=== PATIENT | female | born 1955 | race Caucasian/White ===

== ENCOUNTER 2018-09-26 17:00 | Inpatient (IN) | payer SELFPAY ==
[2018-09-26 18:23] LABS: URINE BILIRUBIN NEGATIVE (NEGATIVE); URINE BLOOD LARGE (NEGATIVE); URINE COLOR YELLOW (YELLOW); URINE GLUCOSE (UA) NEGATIVE (NEGATIVE); URINE LEUKOCYTE ESTERASE LARGE Leu/uL (NEGATIVE); URINE PROTEIN 100 mg/dL (<30 mg/dL); URINE UROBILINOGEN 0.2 E.U./dL (<1 E.U./dL)
--- NOTE | 2018-09-26 18:28 | ED PDOC ---
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 She states no symptoms this AM, and that symptoms were sudden onset [place] a mall this [place]. Pain intermittent and now localized to suprapubic area. Denies any history of fever. Denies nausea or vomiting. Denies diarrhea or difficulty moving bowels. Daughter is present and translates with patient's permission. Past Medical History - Infectious Disease Hx of Infectious Diseases: None - Reproductive Menopause: Yes - Cardiac Hx Cardiac Disorders: Yes Hx Hypertension: Yes - Pulmonary Hx Respiratory Disorders: No - Neurological Hx Neurological Disorder: No - Endocrine/Metabolic Hx Diabetes Mellitus Type 2: Yes - Psychiatric Hx Psychophysiologic Disorder: No Hx Substance Use: No - Anesthesia Hx Anesthesia Reactions: No Family/Social History Family/Social History: Unknown Family HX Smoking Status: Unknown If Ever Smoked Hx Alcohol Use: No Hx Substance Use: No Allergies/Home Meds Allergies/Adverse Reactions: Allergies No Known Allergies Allergy (Verified 09/26/18 17:30) Review of Systems - Review of Systems Constitutional: absent: Fevers Respiratory: absent: SOB Cardiovascular: absent: Chest Pain Gastrointestinal: Abdominal Pain. absent: Constipation, Diarrhea, Nausea, Vomiting, Appetite Changes, Hematochezia, Hematemesis Genitourinary Female: Dysuria, Frequency, Hematuria, Urine Output Changes. absent: Vaginal Bleeding, Vaginal Discharge Musculoskeletal: Back Pain. absent: Neck Pain Skin: absent: Rash Neurological: absent: Headache, Dizziness, Focal Weakness Endocrine: absent: Polyuria Hemo/Lymphatic: absent: Easy Bleeding Physical Exam Vital Signs Reviewed: Yes Temperature: Afebrile Appearance: Positive for: Well-Appearing, Non-Toxic, Comfortable Pain Distress: Mild Mental Status: Positive for: Alert and Oriented X 3 - Systems Exam Head: Present: Atraumatic Pupils: Present: PERRL Extroacular Muscles: Present: EOMI Conjunctiva: No: Icteric Mouth: Present: Moist Mucous Membranes Pharnyx: No: ERYTHEMA Neck: Present: Normal Range of Motion. No: Meningeal Signs Respiratory/Chest: Present: Clear to Auscultation. No: Respiratory Distress Cardiovascular: Present: Regular Rate and Rhythm Abdomen: Present: Tenderness (mild supraprubic pain, no pusatile masses, no incarcerated hernia noted), Scars. No: Peritoneal Signs Rectal: No: Gross Blood Back: Present: CVA Tenderness. No: Midline Tenderness Upper Extremity: Present: Normal ROM. No: Edema Lower Extremity: Present: NORMAL PULSES, Neurovascularly Intact. No: Edema, CALF TENDERNESS Neurological: Present: Motor Func Grossly Intact, Normal Sensory Function Skin: Present: Warm Psychiatric: Present: Alert, Normal Insight, Normal Concentration Medical Decision Making ED Course and Treatment: 09/26/18 18:29 Patient present with family who supplements history. Patient reports sudden onset of flank and abdominal pain associated with urinary frequency. On exam, she is comfortable, no fever, no vomiting. No chest pain or sob. Hx of kidney stones reported. Mild left lower quadrant abdominal pain palpated on re-exam. No rebound or guarding. No incarcerated hernias. CT ordered to evaluate for renal colic. UA reviewed. 09/26/18 20:[address] Salvador for follow-up of ct, re-evaluation, and dispo. 09/29/18 15:23 - Lab Interpretations Lab Results: Urine Color Yellow (YELLOW) 09/26/18 18:00 Urine Appearance Sl cloudy (CLEAR) 09/26/18 18:00 Urine pH 6.0 (4.7-8.0) 09/26/18 18:00 Ur Specific [place] 1.025 (1.005-1.035) 09/26/18 18:00 Urine Protein 100 mg/dL (<30 mg/dL) H 09/26/18 18:00 Urine Glucose (UA) Negative mg/dL (NEGATIVE) 09/26/18 18:00 Urine Ketones Negative mg/dL (NEGATIVE) 09/26/18 18:00 Urine Blood Large (NEGATIVE) H 09/26/18 18:00 Urine Nitrate Negative (NEGATIVE) 09/26/18 18:00 Urine Bilirubin Negative (NEGATIVE) 09/26/18 18:00 Urine Urobilinogen 0.2 E.U./dL (<1 E.U./dL) 09/26/18 18:00 Ur Leukocyte Esterase Large [place]/uL (NEGATIVE) H 09/26/18 18:00 - RAD Interpretation Radiology Orders: 09/26/18 18:02 ABD & PELVIS W/O PO OR IV CONT [CT] Stat CHEST TWO VIEWS (PA/LAT) [RAD] Stat Disposition/Present on Arrival - Present on Arrival Any Indicators Present on Arrival: No History of DVT/PE: No History of Uncontrolled Diabetes: No Urinary Catheter: No History of Decub. Ulcer: No History Surgical Site Infection Following: None - Disposition Have Diagnosis and Disposition been Completed?: Yes Diagnosis: Pyelonephritis Disposition: HOSPITALIZED Disposition Time: 21:00 Patient Plan: Admission Patient Problems: Current Active Problems Problem Status Onset Pyelonephritis Acute Condition: STABLE
[2018-09-26 18:32] LABS: URINE APPEARANCE CLOUDY (CLEAR); URINE BACTERIA MANY /hpf; URINE RBC TNTC /hpf (0-2); URINE WBC TNTC /hpf (0-6)
[2018-09-26 19:23] LABS: BASO # 0.02 K/mm3 (0.0-2.0); BASO % 0.1 % (0.0-3.0); EOS # 0.1 (0.0-0.7); EOS % 0.8 % (1.5-5.0); LYMPH # 4.1 (1.2-3.4); LYMPH % 30.7 % (22.0-35.0); MEAN CELL VOLUME 84.5 fl (80.0-105.0); MEAN CORPUSCULAR HEMOGLOBIN 28.2 pg (25.0-35.0); MEAN CORPUSCULAR HGB CONC 33.3 g/dl (31.0-37.0); MEAN PLATELET VOLUME 9.1 fl (7.0-11.0); MONO # 0.8 (0.1-0.6); MONO % 6.2 % (1.0-6.0); RBC 4.26 10^6/uL (3.5-6.1); RED CELL DISTRIBUTION WIDTH 14.6 % (11.5-14.5); WHITE BLOOD COUNT 13.4 10^3/uL (4.5-11.0)
[2018-09-26 19:40] LABS: ALB/GLOB RATIO 1.1 (1.1-1.8); CALCIUM 9.3 mg/dL (8.4-10.5)
[2018-09-26] MEDS ORDERED: cefTRIAXone 1 gm 1 GM/100 ML BAG IV STA (20:50)
--- NOTE | 2018-09-26 21:12 | ED PDOC ---
Physical Exam Vital Signs Temp Pulse Resp BP Pulse Ox 09/26/18 19:38 93 H 17 120/69 96 09/26/18 17:24 98.2 F 93 H 18 128/71 98 Medical Decision Making ED Course and Treatment: 09/26/18 21:11 Case endorsed to me by Dr. Griffin Covington pending CT Abd & Pelvis, Urinalysis, and reassessment/disposition. CT of the abdomen and pelvis without contrast Electronically signed on September 26, 2018 9:13:32 PM EDT by: Roman Carlson M.D. Impression: 1. Nonobstructing right renal nephrolithiasis. No evidence of hydronephrosis. 2. No obstructive or inflammatory bowel changes. 3. Leiomyomatous uterus. 4. Left inguinal hernia containing only omental fat. 09/26/18 21:29 Patient on reevaluation with continued left flank pain /noted leukocytosis/and positive urine.Iv antibiotics administered. Case discussed with medical records coder and Dr. Adams who is aware and agrees with the plan. Accepts patient into hospitalist service. - Lab Interpretations Lab Results: Total Bilirubin 0.4 mg/dL (0.2-1.3) 09/26/18 18:30 AST 49 U/L (14-36) H 09/26/18 18:30 ALT 37 U/L (7-56) 09/26/18 18:30 Alkaline Phosphatase 91 U/L (38-126) 09/26/18 18:30 Total Protein 7.8 g/dL (5.8-8.3) 09/26/18 18:30 Albumin 4.0 g/dL (3.0-4.8) 09/26/18 18:30 Globulin 3.8 gm/dL 09/26/18 18:30 Albumin/Globulin Ratio 1.1 (1.1-1.8) 09/26/18 18:30 Urine Color Yellow (YELLOW) 09/26/18 18:00 Urine Appearance Cloudy (CLEAR) 09/26/18 18:00 Urine pH 6.0 (4.7-8.0) 09/26/18 18:00 Ur Specific [place] 1.025 (1.005-1.035) 09/26/18 18:00 Urine Protein 100 mg/dL (<30 mg/dL) H 09/26/18 18:00 Urine Glucose (UA) Negative mg/dL (NEGATIVE) 09/26/18 18:00 Urine Ketones Negative mg/dL (NEGATIVE) 09/26/18 18:00 Urine Blood Large (NEGATIVE) H 09/26/18 18:00 Urine Nitrate Negative (NEGATIVE) 09/26/18 18:00 Urine Bilirubin Negative (NEGATIVE) 09/26/18 18:00 Urine Urobilinogen 0.2 E.U./dL (<1 E.U./dL) 09/26/18 18:00 Ur Leukocyte Esterase Large [place]/uL (NEGATIVE) H 09/26/18 18:00 Urine RBC Tntc /hpf (0-2) H 09/26/18 18:00 Urine WBC Tntc /hpf (0-6) H 09/26/18 18:00 Ur Epithelial Cells 6 - 8 /hpf (0-5) H 09/26/18 18:00 Urine Bacteria Many /hpf (NONE) 09/26/18 18:00 I have reviewed the lab results: Yes - RAD Interpretation Radiology Orders: 09/26/18 18:02 ABD & PELVIS W/O PO OR IV CONT [CT] Stat CHEST TWO VIEWS (PA/LAT) [RAD] Stat - Medication Orders Current Medication Orders: Ceftriaxone Sodium (Rocephin 1 Gram Ivpb) 1 gm in 100 mls @ 200 mls/hr IV ONCE STA; Protocol Stop: 09/26/18 21:19 Last Admin: 09/26/18 20:56 Dose: 200 mls/hr eMAR Start Stop Document 09/26/18 20:56 CD (Rec: 09/26/18 20:56 CD [facility] [id number] Intravenous Solution Start Date 09/26/18 Start Time 20:56 End Date 09/26/18 End time 21:26 Total Infusion Time 30 - Scribe Statement The provider has reviewed the documentation as recorded by the Dima Encinas Provider Scribe Attestation: All medical record entries made by the Scribe were at my direction and personally dictated by me. I have reviewed the chart and agree that the record accurately reflects my personal performance of the history, physical exam, medical decision making, and the department course for this patient. I have also personally directed, reviewed, and agree with the discharge instructions and disposition. Disposition/Present on Arrival - Present on Arrival Any Indicators Present on Arrival: No History of DVT/PE: No History of Uncontrolled Diabetes: No Urinary Catheter: No History of Decub. Ulcer: No History Surgical Site Infection Following: None - Disposition Have Diagnosis and Disposition been Completed?: Yes Diagnosis: Pyelonephritis Disposition: HOSPITALIZED Disposition Time: 21:30 Patient Problems: Current Active Problems Problem Status Onset Pyelonephritis Acute Condition: STABLE
--- NOTE | 2018-09-26 22:29 | CP.PCM.HP ---
<Iraj Morrissey - Last Filed: 09/26/18 22:59> History of Present Illness - History of Present Illness History of Present Illness: CC: L Flank pain, dysuriea, and blood in urine 63 year old Sami speaking female with PMHx of DM, HTN, and nephrothiasis presents to the hospital with c/o with L flank pain and burning with urination. Pt states that her symptoms started this morning and has gotten progressively worse. She states that the flank pain is 8/10 in severity and non radiating. She complains of dyurea as well as seeing blood in her urine. She denies any fever or chills. She does also complain of a cough for the past 3 weeks. She states that she just returned from [place] a few days ago and she was started on antibiotics for it, name of which she does not recall. No other Complaints. 12 Point ROS performed and neg other than stated above. PMH: as above Pshx: R breast lipoma, and "kidney stone surgery" Med: refer to MAR ALL: NKA SH: Denies any smoking, drinking, or drug FH: mother with DM and HTN Translation code: [id number] Present on Admission - Present on Admission Any Indicators Present on Admission: No Review of Systems - Review of Systems All systems: reviewed and no additional remarkable complaints except Past Patient History - Infectious Disease Hx of Infectious Diseases: None - Past Social History Smoking Status: Unknown If Ever Smoked - CARDIAC Hx Cardiac Disorders: Yes Hx Hypertension: Yes - PULMONARY Hx Respiratory Disorders: No - NEUROLOGICAL Hx Neurological Disorder: No - ENDOCRINE/METABOLIC Hx Diabetes Mellitus Type 2: Yes - PSYCHIATRIC Hx Psychophysiologic Disorder: No Hx Substance Use: No - ANESTHESIA Hx Anesthesia Reactions: No Meds Allergies/Adverse Reactions: Allergies Allergy/AdvReac Type Severity Reaction Status Date / Time No Known Allergies Allergy Verified 09/26/18 17:30 Physical Exam - Constitutional Appears: No Acute Distress - Head Exam Head Exam: ATRAUMATIC, NORMOCEPHALIC - Eye Exam Eye Exam: EOMI - ENT Exam ENT Exam: Mucous Membranes Moist - Respiratory Exam Respiratory Exam: Clear to Auscultation Bilateral. absent: Rales, Rhonchi, Wheezes - Cardiovascular Exam Cardiovascular Exam: Tachycardia, REGULAR RHYTHM, +S1, +S2 - GI/Abdominal Exam GI & Abdominal Exam: Normal Bowel Sounds, Soft, Tenderness (lower abd). absent: Distended - Extremities Exam Extremities exam: Negative for: calf tenderness, pedal edema - Back Exam Back exam: CVA tenderness (L) - Neurological Exam Neurological exam: Alert, CN II-XII Intact, Normal Gait, Oriented x3 - Psychiatric Exam Psychiatric exam: Normal Mood - Skin Skin Exam: Dry, Warm Results - Vital Signs Recent Vital Signs: Last Vital Signs Temp 98.2 F 09/26/18 21:36 Pulse 87 09/26/18 21:36 Resp 18 09/26/18 21:36 BP 128/64 09/26/18 21:36 Pulse Ox 95 09/26/18 21:36 - Labs Result Diagrams: 09/26/18 18:30 09/26/18 18:30 Labs: Laboratory Results - last 24 hr 09/26/18 09/26/18 09/26/18 18:00 18:30 18:30 WBC 13.4 H RBC 4.26 Hgb 12.0 Hct 36.0 MCV 84.5 MCH 28.2 MCHC 33.3 RDW 14.6 H Plt Count 354 MPV 9.1 Neut % (Auto) 62.2 Lymph % (Auto) 30.7 Webb % (Auto) 6.2 H Eos % (Auto) 0.8 L Baso % (Auto) 0.1 Lymph # (Auto) 4.1 H Webb # (Auto) 0.8 H Eos # (Auto) 0.1 Baso # (Auto) 0.02 Absolute Neuts (auto) 8.30 H Sodium 139 Potassium 4.2 Chloride 105 Carbon Dioxide 22 Anion Gap 16 BUN 53 H Creatinine 1.5 H Est GFR ( Amer) 42 Est GFR (Non-Af Amer) 35 Random Glucose 114 H Calcium 9.3 Total Bilirubin 0.4 AST 49 H ALT 37 Alkaline Phosphatase 91 Total Protein 7.8 Albumin 4.0 Globulin 3.8 Albumin/Globulin Ratio 1.1 Urine Color Yellow Urine Appearance Cloudy Urine pH 6.0 Ur Specific [place] 1.025 Urine Protein 100 H Urine Glucose (UA) Negative Urine Ketones Negative Urine Blood Large H Urine Nitrate Negative Urine Bilirubin Negative Urine Urobilinogen 0.2 Ur Leukocyte Esterase Large H Urine RBC Tntc H Urine WBC Tntc H Ur Epithelial Cells 6 - 8 H Urine Bacteria Many Assessment & Plan - Assessment and Plan (Free Text) Assessment: Sepsis with urinary tract infection with high suspicion of pyelo Bronchitis r/o pneumonia REINA DM non insulin dependent HTN Hx of nephrolithiasis Rocephin has been started in the ED. Urinalysis was positive. We will continue Rocephin for UTI (with probably clinical cystitis and pyelonephritis). CT of abd without contrast showed no pyelo. Cont Tylenol for pain control. Started Doxy for her bronchitis. F/u official CXR read. Cont NS@100 for her REINA. Cont to monitor Cr and avoid nephrotoxic drugs. DM we will start insulin sliding scale. F/u home medications. HTN currently normotensive, f/u home medications. Cont Protonix and SCD for GI/DVT ppx. Case and plan was reviewed and discussed with Dr Adams. <Philip Adams - Last Filed: 09/27/18 05:13> Results - Vital Signs Recent Vital Signs: Last Vital Signs Temp 98.2 F 09/26/18 21:36 Pulse 87 09/26/18 21:36 Resp 18 09/27/18 00:02 BP 128/64 09/26/18 21:36 Pulse Ox 95 09/26/18 21:36 - Labs Result Diagrams: 09/26/18 18:30 09/26/18 18:30 Labs: Laboratory Results - last 24 hr 09/26/18 09/26/18 09/26/18 18:00 18:30 18:30 WBC 13.4 H RBC 4.26 Hgb 12.0 Hct 36.0 MCV 84.5 MCH 28.2 MCHC 33.3 RDW 14.6 H Plt Count 354 MPV 9.1 Neut % (Auto) 62.2 Lymph % (Auto) 30.7 Webb % (Auto) 6.2 H Eos % (Auto) 0.8 L Baso % (Auto) 0.1 Lymph # (Auto) 4.1 H Webb # (Auto) 0.8 H Eos # (Auto) 0.1 Baso # (Auto) 0.02 Absolute Neuts (auto) 8.30 H Sodium 139 Potassium 4.2 Chloride 105 Carbon Dioxide 22 Anion Gap 16 BUN 53 H Creatinine 1.5 H Est GFR ( Amer) 42 Est GFR (Non-Af Amer) 35 Random Glucose 114 H Calcium 9.3 Total Bilirubin 0.4 AST 49 H ALT 37 Alkaline Phosphatase 91 Total Protein 7.8 Albumin 4.0 Globulin 3.8 Albumin/Globulin Ratio 1.1 Urine Color Yellow Urine Appearance Cloudy Urine pH 6.0 Ur Specific [place] 1.025 Urine Protein 100 H Urine Glucose (UA) Negative Urine Ketones Negative Urine Blood Large H Urine Nitrate Negative Urine Bilirubin Negative Urine Urobilinogen 0.2 Ur Leukocyte Esterase Large H Urine RBC Tntc H Urine WBC Tntc H Ur Epithelial Cells 6 - 8 H Urine Bacteria Many Attending/Attestation - Attestation I have personally seen and examined this patient.: Yes I have fully participated in the care of the patient.: Yes I have reviewed all pertinent clinical information: Yes
[2018-09-27] MEDS: Sodium Chloride 0.9% 1,000 ML IV SCH ×3 (01:21→18:45)
[2018-09-27] MEDS: Pantoprazole 40 mg EC Tab PO SCH (05:42)
[2018-09-27 08:05] LABS: BASO # 0.01 K/mm3 (0.0-2.0); BASO % 0.1 % (0.0-3.0); EOS # 0.2 (0.0-0.7); EOS % 1.9 % (1.5-5.0); HEMOGLOBIN 11.2 g/dL (12.0-16.0); LYMPH # 3.6 (1.2-3.4); LYMPH % 36.1 % (22.0-35.0); MEAN CELL VOLUME 84.9 fl (80.0-105.0); MEAN CORPUSCULAR HEMOGLOBIN 27.3 pg (25.0-35.0); MEAN CORPUSCULAR HGB CONC 32.1 g/dl (31.0-37.0); MEAN PLATELET VOLUME 8.9 fl (7.0-11.0); MONO # 0.7 (0.1-0.6); MONO % 6.6 % (1.0-6.0); RBC 4.11 10^6/uL (3.5-6.1); RED CELL DISTRIBUTION WIDTH 14.7 % (11.5-14.5); WHITE BLOOD COUNT 10.1 10^3/uL (4.5-11.0)
[2018-09-27] MEDS: Insulin Reg-LOW-Coverage SC SCH ×4 (08:10→22:04)
[2018-09-27 08:17] LABS: ALBUMIN 3.6 g/dL (3.0-4.8); CALCIUM 8.6 mg/dL (8.4-10.5)
--- NOTE | 2018-09-27 09:13 | CT ---
Date of service: 09/26/2018 PROCEDURE: CT Abdomen and Pelvis without intravenous contrast HISTORY: left flank/abdominal pain COMPARISON: None. TECHNIQUE: Contiguous images were obtained from the domes of the diaphragms to the upper thighs without the administration of intravenous contrast. Oral contrast was not administered. Radiation dose: Total exam DLP = 949.75 mGy-cm. This CT exam was performed using one or more of the following dose reduction techniques: Automated exposure control, adjustment of the mA and/or kV according to patient size, and/or use of iterative reconstruction technique. FINDINGS: LOWER THORAX: Bibasilar atelectasis/scarring. Heart size normal. Coronary arterial and valvular calcifications. LIVER: Diffuse hepatic steatosis. No gross lesion or ductal dilatation. GALLBLADDER AND BILE DUCTS: Unremarkable. PANCREAS: Unremarkable. No gross lesion or ductal dilatation. SPLEEN: Small splenule inferior to the main spleen. ADRENALS: Unremarkable. No mass. KIDNEYS AND URETERS: Right lower pole 8 x 11 nonobstructive calculus. Focal right upper pole caliectasis. No hydronephrosis. No solid mass. VASCULATURE: Unremarkable. No aortic aneurysm. No aortic atherosclerotic calcification or mural plaque present. BOWEL: Unremarkable. No obstruction. No gross mural thickening. APPENDIX: No findings to suggest acute appendicitis. PERITONEUM: Moderate left fat containing inguinal hernia. No free fluid. No free air. LYMPH NODES: Unremarkable. No enlarged lymph nodes. BLADDER: Unremarkable. REPRODUCTIVE: Multi fibroid uterus, some of which demonstrate calcifications. BONES: No acute fracture. OTHER FINDINGS: None. IMPRESSION: No obstructive uropathy or evidence of recently passed genitourinary calculus. Nonobstructive right lower pole calculus. No acute abdominal pelvic pathology
--- NOTE | 2018-09-27 09:14 | RAD ---
Date of service: 09/26/2018 HISTORY: cough for one week COMPARISON: No prior. TECHNIQUE: Chest PA and lateral views FINDINGS: LUNGS: No active pulmonary disease. PLEURA: No significant pleural effusion identified. No pneumothorax apparent. CARDIOVASCULAR: No aortic atherosclerotic calcification present. Normal cardiac size. No pulmonary vascular congestion. OSSEOUS STRUCTURES: No significant abnormalities. VISUALIZED UPPER ABDOMEN: Normal. OTHER FINDINGS: None. IMPRESSION: No active disease.
[2018-09-27] MEDS ORDERED: Alum-Mag Hydrox-Simethicone Susp (30 mL) PO PRN (09:55)
[2018-09-27] MEDS: cefTRIAXone 1 gm 1 GM/100 ML BAG IVPB SCH (10:32)
[2018-09-27 10:42] LABS: HDL CHOLESTEROL 28 mg/dL (29-60)
[2018-09-27 10:52] LABS: LDL CHOLESTEROL 95 mg/dL (0-129)
[2018-09-27 10:54] LABS: TROPONIN I < 0.01 ng/mL
--- NOTE | 2018-09-27 13:15 | CP.PCM.PN ---
<Nohelia Calvin - Last Filed: 09/27/18 13:12> Subjective - Date & Time of Evaluation Date of Evaluation: 09/27/18 Time of Evaluation: 13:12 - Subjective Subjective: Nohelia Calvin, PGY-1, Internal Medicine Progress Note for Dr. Mejía Patient seen and evaluated at bedside. Patient had no acute overnight events. Patient reported discontinuation of hematuria but reported dysuria. Patient has improvement of abdominal and flank pain of the left side. Patient had chills and nausea at home but denies these symptoms at this time. Patient denies constipation, diarrhea. In addition, patient has had cough for 1 month with light yellow sputum. 12-point ROS was unremarkable except for what was mentioned above. Patient takes amaryl 3 mg daily Objective - Vital Signs/Intake and Output Vital Signs (last 24 hours): Temp Pulse Resp BP Pulse Ox 98.1 F 87 18 133/73 98 09/27/18 06:00 09/27/18 06:00 09/27/18 06:00 09/27/18 06:00 09/27/18 06:00 Intake and Output: 09/27/18 09/27/18 06:59 18:59 Intake Total 240 Balance 240 - Medications Medications: Current Medications Acetaminophen (Tylenol 325mg Tab) 650 mg PO Q6H PRN PRN Reason: Pain, moderate (4-7) Al Hydrox/Mg Hydrox/Simethicone (Maalox Plus 30 Ml) 30 ml PO DAILY PRN PRN Reason: Indigestion / Heartburn Aspirin (Aspirin Chewable) 81 mg PO DAILY [facility] Last Admin: 09/27/18 10:37 Dose: 81 mg Doxycycline Hyclate (Doryx) 100 mg PO Q12 [facility]; Protocol Last Admin: 09/27/18 10:33 Dose: 100 mg Sodium Chloride (Sodium Chloride 0.9%) 1,000 mls @ 100 mls/hr IV .Q10H [facility] Last Admin: 09/27/18 08:45 Dose: 100 mls/hr Ceftriaxone Sodium (Rocephin 1 Gram Ivpb) 1 gm in 100 mls @ 100 mls/hr IVPB DAILY [facility]; Protocol Last Admin: 09/27/18 10:32 Dose: 100 mls/hr Insulin Human Regular (Humulin R Low) 0 units SC ACHS [facility]; Protocol Last Admin: 09/27/18 11:56 Dose: Not Given Pantoprazole Sodium (Protonix Ec Tab) 40 mg PO 0600 [facility] Last Admin: 09/27/18 05:42 Dose: 40 mg - Labs Labs: 09/27/18 07:00 09/27/18 07:00 - Constitutional Appears: Well, Non-toxic, No Acute Distress - Head Exam Head Exam: ATRAUMATIC, NORMAL INSPECTION, NORMOCEPHALIC - Eye Exam Eye Exam: EOMI, PERRL - ENT Exam ENT Exam: Mucous Membranes Moist - Neck Exam Neck Exam: Full ROM, Normal Inspection - Respiratory Exam Respiratory Exam: Rales, NORMAL BREATHING PATTERN - Cardiovascular Exam Cardiovascular Exam: REGULAR RHYTHM, RRR, +S1, +S2. absent: Clicks, Gallop, Rubs - GI/Abdominal Exam GI & Abdominal Exam: Soft, Tenderness (llq), Normal Bowel Sounds. absent: Distended, Firm, Guarding - Extremities Exam Extremities Exam: Full ROM, Normal Capillary Refill, Normal Inspection - Back Exam Back Exam: CVA tenderness (L) - Neurological Exam Neurological Exam: Alert, Awake, CN II-XII Intact, Normal Gait, Oriented x3 - Psychiatric Exam Psychiatric exam: Normal Affect, Normal Mood - Skin Skin Exam: Dry, Intact, Normal Color Assessment and Plan - Assessment and Plan (Free Text) Assessment: 63 year old female with past medical history of diabetes mellitus, hypertension, nephrolithiasis presented with left flank pain with burning on urination and hematuria. Abdominal CT shows no obstructive uropathy or evidence of recently passed genitourinary calculus. Nonobstructive right lower pole calculus. Plan: UTI vs. pyelonephritis -Abdominal CT 09/27 shows no obstructive uropathy or evidence of recently passed genitourinary calculus. Nonobstructive right lower pole calculus. -No CT findings of pyelonephritis but symptomatically is consistent -UA: large blood, large LE, negative nitrate, Tntc WBC, 6-8 epithelial cells, many bacteria -UCx: gram negative raza -Continue with NS at 100cc/hr -Continue ceftriaxone 1 gm daily started on 09/26 -Continue with tylenol PRN for pain GERD -CXR: no active disease -Continue with protonix -Started maalox PRN -Started robitussin 100 mg Q4PRN -Cough likely 2/2 to severe GERD. Bronchitis -Rhonchi on exam on 09/27 -CXR: no acute disease -Will continue doxycycline started on 09/26 Atypical Chest Pain with ACS rule out -EKG: NSR -Tropx1: negative -Will follow up tropx2 -Start aspirin 81 mg daily Hyperlipidemia -T. Rest of lipid panel unremarkable -Start lipitor 20 mg daily REINA -Creatinine 1.5. Unchanged from 09/26 -Continue with NS at 100cc/hr Diabetes mellitus type II -HgbA1c: 7.3 -Continue with low sliding scale insulin -Continue with consistent carbohydrate diet -Accuchecks ACHS History of Hypertension -Normotensive -Hold off on antihypertensives at this time GI prophylaxis: protonix DVT prophylaxis: SCD Patient plan discussed with Dr. Mejía. <Kaylyn Mejía - Last Filed: 09/27/18 14:25> Objective - Vital Signs/Intake and Output Vital Signs (last 24 hours): Temp Pulse Resp BP Pulse Ox 98.1 F 87 18 133/73 98 09/27/18 06:00 09/27/18 06:00 09/27/18 06:00 09/27/18 06:00 09/27/18 06:00 Intake and Output: 09/27/18 09/27/18 06:59 18:59 Intake Total 240 Balance 240 - Medications Medications: Current Medications Acetaminophen (Tylenol 325mg Tab) 650 mg PO Q6H PRN PRN Reason: Pain, moderate (4-7) Al Hydrox/Mg Hydrox/Simethicone (Maalox Plus 30 Ml) 30 ml PO DAILY PRN PRN Reason: Indigestion / Heartburn Albuterol/Ipratropium (Duoneb 3 Mg/0.5 Mg (3 Ml) Ud) 3 ml IH Q2H PRN PRN Reason: Shortness of Breath Aspirin (Aspirin Chewable) 81 mg PO DAILY [facility] Last Admin: 09/27/18 10:37 Dose: 81 mg Atorvastatin Calcium (Lipitor) 20 mg PO DIN [facility] Doxycycline Hyclate (Doryx) 100 mg PO Q12 [facility]; Protocol Guaifenesin (Robitussin) 100 mg PO Q4H PRN PRN Reason: Cough Sodium Chloride (Sodium Chloride 0.9%) 1,000 mls @ 100 mls/hr IV .Q10H [facility] Last Admin: 09/27/18 08:45 Dose: 100 mls/hr Ceftriaxone Sodium (Rocephin 1 Gram Ivpb) 1 gm in 100 mls @ 100 mls/hr IVPB DAILY [facility]; Protocol Last Admin: 09/27/18 10:32 Dose: 100 mls/hr Insulin Human Regular (Humulin R Low) 0 units SC ACHS [facility]; Protocol Last Admin: 09/27/18 11:56 Dose: Not Given Pantoprazole Sodium (Protonix Ec Tab) 40 mg PO 0600 [facility] Last Admin: 09/27/18 05:42 Dose: 40 mg - Labs Labs: 09/27/18 07:00 09/27/18 07:00 Attending/Attestation - Attestation I have personally seen and examined this patient.: Yes I have fully participated in the care of the patient.: Yes I have reviewed all pertinent clinical information, including history, physical exam and plan: Yes Notes (Text): 09/27/18 14:19 63 year old with past medical history of diabetes, hypertension and nephrolithiasis who presented with complaint of left flank pain, dysuria and burning epigastric pain. UA+. CT abd/pelvis showed nonobstructive right lower pole calculus. EKG unremarkable and initial troponin is negative; will obtain two more. Symptoms likely secondary to UTI, bronchitis, GERD. Continue with iv antibiotics while awaiting UCx so far growing gram negative rods. Continue with PPI. Counselled on GERD precautions. Patient also has mild renal insuffiency with creatinine 1.5 (unknown baseline). Continue with IVF and repeat labs in AM . Family is at bedside and questions were answered. Kaylyn Mejía MD Hospitalist.
[2018-09-27] MEDS ORDERED: Albuterol-Ipratrop 3 mg / 0.5 (3 ml) UD IH PRN (13:19)
[2018-09-27] MEDS: guaiFENesin 100 mg/5 ml Syrup UD PO PRN (21:08)
[2018-09-28] MEDS: Sodium Chloride 0.9% 1,000 ML IV SCH (00:30)
[2018-09-28] MEDS: Pantoprazole 40 mg EC Tab PO SCH (06:35)
[2018-09-28 07:32] LABS: BASO # 0.01 K/mm3 (0.0-2.0); BASO % 0.1 % (0.0-3.0); EOS # 0.4 (0.0-0.7); EOS % 4.2 % (1.5-5.0); HEMOGLOBIN 10.3 g/dL (12.0-16.0); LYMPH % 33.4 % (22.0-35.0); MEAN CELL VOLUME 85.6 fl (80.0-105.0); MEAN CORPUSCULAR HGB CONC 31.5 g/dl (31.0-37.0); MEAN PLATELET VOLUME 8.7 fl (7.0-11.0); MONO # 0.7 (0.1-0.6); MONO % 7.6 % (1.0-6.0); RBC 3.82 10^6/uL (3.5-6.1); RED CELL DISTRIBUTION WIDTH 14.6 % (11.5-14.5); WHITE BLOOD COUNT 9.1 10^3/uL (4.5-11.0)
[2018-09-28] MEDS: Insulin Reg-LOW-Coverage SC SCH ×4 (07:45→21:48)
[2018-09-28 08:02] LABS: ALB/GLOB RATIO 0.9 (1.1-1.8); ALBUMIN 3.2 g/dL (3.0-4.8); CALCIUM 8.2 mg/dL (8.4-10.5)
[2018-09-28] MEDS: cefTRIAXone 1 gm 1 GM/100 ML BAG IVPB SCH (09:39)
[2018-09-28] MEDS: guaiFENesin 100 mg/5 ml Syrup UD PO PRN ×2 (10:05→16:54)
[2018-09-28] MEDS ORDERED: Albuterol-Ipratrop 3 mg / 0.5 (3 ml) UD IH PRN (10:09)
--- NOTE | 2018-09-28 11:13 | RAD ---
Date of service: 09/28/2018 PROCEDURE: CHEST RADIOGRAPH, 1 VIEW HISTORY: rhonchi COMPARISON: Chest radiograph dated 09/26/2018. FINDINGS: LUNGS: Clear. PLEURA: No pneumothorax or pleural fluid seen. CARDIOVASCULAR: No aortic atherosclerotic calcification present. Normal. OSSEOUS STRUCTURES: Unchanged. VISUALIZED UPPER ABDOMEN: Normal. OTHER FINDINGS: None. IMPRESSION: No active disease.
--- NOTE | 2018-09-28 11:28 | CARD ---
APPROVED REPORT Date of service: 09/27/2018 EKG Measurement Heart [id number] <Conclusion> Normal sinus rhythm Normal ECG
--- NOTE | 2018-09-28 12:20 | CP.PCM.PN ---
<Nohelia Calvin - Last Filed: 09/28/18 12:09> Subjective - Date & Time of Evaluation Date of Evaluation: 09/28/18 Time of Evaluation: 12:09 - Subjective Subjective: Nohelia Calvin, PGY-1, Internal Medicine Progress Note for Dr. Donnelly Patient seen and evaluated at bedside. Patient had no acute overnight event. Patient continues to complain of cough but now says it is nonproductive. She also reports tenderness of frontal sinuses. She reports improvement of urinary symptoms including dysuria, flank pain, abdominal pain. 12-point ROS was unremarkable except for what was mentioned above. Objective - Vital Signs/Intake and Output Vital Signs (last 24 hours): Temp Pulse Resp BP Pulse Ox 98.1 F 85 18 130/73 95 09/28/18 06:00 09/28/18 06:00 09/28/18 06:00 09/28/18 06:00 09/28/18 06:00 Intake and Output: 09/28/18 09/28/18 06:59 18:59 Intake Total 1960 1320 Balance 1960 1320 - Medications Medications: Current Medications Acetaminophen (Tylenol 325mg Tab) 650 mg PO Q6H PRN PRN Reason: Pain, moderate (4-7) Al Hydrox/Mg Hydrox/Simethicone (Maalox Plus 30 Ml) 30 ml PO DAILY PRN PRN Reason: Indigestion / Heartburn Albuterol/Ipratropium (Duoneb 3 Mg/0.5 Mg (3 Ml) Ud) 3 ml IH Q2H PRN PRN Reason: Shortness of Breath Albuterol/Ipratropium (Duoneb 3 Mg/0.5 Mg (3 Ml) Ud) 3 ml IH [id number] [facility] Amoxicillin/Clavulanate Potassium (Augmentin 875 Mg-125 Mg Tab) 1 tab PO Q12 [facility]; Protocol Aspirin (Aspirin Chewable) 81 mg PO DAILY [facility] Last Admin: 09/28/18 09:40 Dose: 81 mg Atorvastatin Calcium (Lipitor) 20 mg PO DIN [facility] Last Admin: 09/27/18 17:14 Dose: 20 mg Doxycycline Hyclate (Doryx) 100 mg PO Q12 [facility]; Protocol Last Admin: 09/28/18 09:40 Dose: 100 mg Guaifenesin (Robitussin) 100 mg PO Q4H PRN PRN Reason: Cough Last Admin: 09/28/18 10:05 Dose: 100 mg Sodium Chloride (Sodium Chloride 0.9%) 1,000 mls @ 100 mls/hr IV .Q10H [facility] Last Admin: 09/28/18 00:30 Dose: 100 mls/hr Ceftriaxone Sodium (Rocephin 1 Gram Ivpb) 1 gm in 100 mls @ 100 mls/hr IVPB DAILY [facility]; Protocol Last Admin: 09/28/18 09:39 Dose: 100 mls/hr Insulin Human Regular (Humulin R Low) 0 units SC ACHS [facility]; Protocol Last Admin: 09/28/18 07:45 Dose: Not Given Pantoprazole Sodium (Protonix Ec Tab) 40 mg PO 0600 [facility] Last Admin: 09/28/18 06:35 Dose: 40 mg Prednisone (Prednisone Tab) 40 mg PO DAILY [facility] - Labs Labs: 09/28/18 07:00 09/28/18 07:00 - Constitutional Appears: Well, Non-toxic, No Acute Distress - Head Exam Head Exam: ATRAUMATIC, NORMAL INSPECTION, NORMOCEPHALIC - Eye Exam Eye Exam: EOMI, PERRL - ENT Exam ENT Exam: Mucous Membranes Moist - Neck Exam Neck Exam: Full ROM, Normal Inspection - Respiratory Exam Respiratory Exam: Rales, NORMAL BREATHING PATTERN - Cardiovascular Exam Cardiovascular Exam: REGULAR RHYTHM, RRR, +S1, +S2. absent: Clicks, Gallop, Rubs - GI/Abdominal Exam GI & Abdominal Exam: Soft, Tenderness (llq), Normal Bowel Sounds. absent: Distended, Firm, Guarding - Extremities Exam Extremities Exam: Full ROM, Normal Capillary Refill, Normal Inspection - Back Exam Back Exam: CVA tenderness (L) - Neurological Exam Neurological Exam: Alert, Awake, CN II-XII Intact, Normal Gait, Oriented x3 - Psychiatric Exam Psychiatric exam: Normal Affect, Normal Mood - Skin Skin Exam: Dry, Intact, Normal Color Assessment and Plan - Assessment and Plan (Free Text) Assessment: 63 year old female with past medical history of diabetes mellitus, hypertension, nephrolithiasis presented with left flank pain with burning on urination and hematuria. Abdominal CT shows no obstructive uropathy or evidence of recently passed genitourinary calculus. Nonobstructive right lower pole calculus. Plan: UTI vs. pyelonephritis -Abdominal CT 09/27 shows no obstructive uropathy or evidence of recently passed genitourinary calculus. Nonobstructive right lower pole calculus. -No CT findings of pyelonephritis but symptomatically is consistent -UA: large blood, large LE, negative nitrate, Tntc WBC, 6-8 epithelial cells, many bacteria -BCx: negative since 09/27 -UCx: E. Coli which is pansensitive -Continue with NS at 100cc/hr -Start augmentin 1 tab Q12 from 09/28 -Stopped ceftriaxone -Continue with tylenol PRN for pain GERD -CXR 09/26: no active disease -CXR 09/28: no active disease -Continue with protonix 40 mg daily -Continue maalox 30 ml daily PRN -Continue robitussin 100 mg Q4PRN Bronchitis vs. sinusitis -Rhonchi on exam -CXR 09/26: no active disease -CXR 09/28: no active disease -Start augmentin 1 tab Q12 from 09/28 for coverage of sinusitis -Start prednisone 40 mg daily -Start duonebs 3 Q6 and Q2PRN -Stopped doxycycline Atypical Chest Pain with ACS rule out -EKG: NSR -Tropx3: negative -Continue aspirin 81 mg daily Hyperlipidemia -T. Rest of lipid panel unremarkable -Continue lipitor 20 mg daily REINA -Creatinine 1.3. Improved -Continue with NS at 100cc/hr Diabetes mellitus type II -HgbA1c: 7.3 -Continue with low sliding scale insulin -Continue with consistent carbohydrate diet -Accuchecks ACHS History of Hypertension -Normotensive -Hold off on antihypertensives at this time GI prophylaxis: protonix DVT prophylaxis: SCD Patient plan discussed with Dr. Donnelly <Lopez Donnelly - Last Filed: 09/28/18 12:40> Objective - Vital Signs/Intake and Output Vital Signs (last 24 hours): Temp Pulse Resp BP Pulse Ox 98.1 F 85 18 130/73 95 09/28/18 06:00 09/28/18 06:00 09/28/18 06:00 09/28/18 06:00 09/28/18 06:00 Intake and Output: 09/28/18 09/28/18 06:59 18:59 Intake Total 1959 1320 Balance 1959 1320 - Medications Medications: Current Medications Acetaminophen (Tylenol 325mg Tab) 650 mg PO Q6H PRN PRN Reason: Pain, moderate (4-7) Al Hydrox/Mg Hydrox/Simethicone (Maalox Plus 30 Ml) 30 ml PO DAILY PRN PRN Reason: Indigestion / Heartburn Albuterol/Ipratropium (Duoneb 3 Mg/0.5 Mg (3 Ml) Ud) 3 ml IH Q2H PRN PRN Reason: Shortness of Breath Albuterol/Ipratropium (Duoneb 3 Mg/0.5 Mg (3 Ml) Ud) 3 ml IH [id number] [facility] Amoxicillin/Clavulanate Potassium (Augmentin 875 Mg-125 Mg Tab) 1 tab PO Q12 [facility]; Protocol Aspirin (Aspirin Chewable) 81 mg PO DAILY [facility] Last Admin: 09/28/18 09:40 Dose: 81 mg Atorvastatin Calcium (Lipitor) 20 mg PO DIN [facility] Last Admin: 09/27/18 17:14 Dose: 20 mg Guaifenesin (Robitussin) 100 mg PO Q4H PRN PRN Reason: Cough Last Admin: 09/28/18 10:05 Dose: 100 mg Insulin Human Regular (Humulin R Low) 0 units SC ACHS [facility]; Protocol Last Admin: 09/28/18 12:13 Dose: Not Given Pantoprazole Sodium (Protonix Ec Tab) 40 mg PO 0600 [facility] Last Admin: 09/28/18 06:35 Dose: 40 mg Prednisone (Prednisone Tab) 40 mg PO DAILY [facility] - Labs Labs: 09/28/18 07:00 09/28/18 07:00 Attending/Attestation - Attestation I have personally seen and examined this patient.: Yes I have fully participated in the care of the patient.: Yes I have reviewed all pertinent clinical information, including history, physical exam and plan: Yes Notes (Text): 09/28/18 12:32 Patient was seen and examined with medical representative. -63 year old with past medical history of diabetes, hypertension and nephrolithiasis who presented with complaint of left flank pain, dysuria and burning epigastric pain. UA showed UTI CT abd/pelvis showed nonobstructive right lower pole calculus. Patient was treated with IV fluid and IV Ceftriaxone. Today Patient is having cough and is c/o congestion. On examination she has tenderness over maxillary sinus suggestive of sinusitis.We will start on oral Augmentin . on chest examination,she is found to wheezing, Repeat Chest X rays is negative for Pneumonia, has mild congestion likely due to fluid overload. We will start patient on neb/Prednisone 40 mg PO daily for 5 days and will discontinue IV fluid. We will give one dose of lasix 20 mg IV Ecoli UTI, Patient is afebrile, antibiotics has been changed to oral. Stage III CKD, Management plan was discussed in detail with patient and son who was at bed side. Education was provided 09/28/18 12:38
[2018-09-28] MEDS: Albuterol-Ipratrop 3 mg / 0.5 (3 ml) UD IH SCH ×2 (13:51→20:04)
[2018-09-28] MEDS: Amoxicillin-Clav 875-125 mg Tab PO SCH (21:47)
[2018-09-29] MEDS: Albuterol-Ipratrop 3 mg / 0.5 (3 ml) UD IH SCH ×3 (01:14→13:12)
[2018-09-29] MEDS: guaiFENesin 100 mg/5 ml Syrup UD PO PRN ×2 (03:01→09:04)
[2018-09-29] MEDS: Pantoprazole 40 mg EC Tab PO SCH (05:37)
[2018-09-29 07:04] LABS: BASO # 0.01 K/mm3 (0.0-2.0); BASO % 0.1 % (0.0-3.0); EOS # 0.1 (0.0-0.7); EOS % 1.2 % (1.5-5.0); HEMOGLOBIN 10.1 g/dL (12.0-16.0); LYMPH % 21.7 % (22.0-35.0); MEAN CORPUSCULAR HEMOGLOBIN 26.9 pg (25.0-35.0); MEAN CORPUSCULAR HGB CONC 32.1 g/dl (31.0-37.0); MEAN PLATELET VOLUME 8.7 fl (7.0-11.0); MONO # 0.8 (0.1-0.6); MONO % 9.1 % (1.0-6.0); RBC 3.75 10^6/uL (3.5-6.1); RED CELL DISTRIBUTION WIDTH 14.3 % (11.5-14.5)
[2018-09-29 07:18] LABS: ALBUMIN 3.6 g/dL (3.0-4.8); CALCIUM 8.5 mg/dL (8.4-10.5)
[2018-09-29] MEDS: Insulin Reg-LOW-Coverage SC SCH ×2 (09:03→15:35)
[2018-09-29] MEDS: Amoxicillin-Clav 875-125 mg Tab PO SCH (09:04)
--- NOTE | 2018-09-29 13:16 | US ---
HISTORY: Leg pain and swelling. Evaluate for DVT PHYSICIAN(S): Josh Shaver MD. TECHNIQUE: Duplex sonography and color-flow Doppler with graded compression were used to evaluate the deep venous systems of both lower extremities. FINDINGS: The visualized deep venous systems of both lower extremities are sonographically normal and compressible. Normal wave forms and augmentation are seen. There is no sonographic evidence for deep venous thrombosis in the visualized segments of both lower extremities. IMPRESSION: No sonographic evidence for deep venous thrombosis in the visualized segments of both lower extremities.
[2018-09-29 13:52] VITALS: BP 148/78; PULSE 102; RESP 20; TEMP 98.3; O2SAT 94
--- NOTE | 2018-09-29 17:27 | CP.PCM.DIS ---
<Nohelia Calvin - Last Filed: 09/29/18 17:17> Provider - Provider Date of Admission: 09/26/18 21:31 Attending physician: Lopez Donnelly MD Primary care physician: NO PRIMARY CARE PROVIDER Time Spent in preparation of Discharge (in minutes): 45 Hospital Course - Lab Results Lab Results: Micro Results 09/27/18 06:00 Blood Blood Culture - Preliminary NO GROWTH AFTER 48 HOURS 09/27/18 06:00 Blood Blood Culture - Preliminary NO GROWTH AFTER 48 HOURS 09/26/18 18:00 Urine Random Urine Culture - Final Escherichia Coli Most Recent Lab Values WBC 9.0 10^3/uL (4.5-11.0) 09/29/18 06:45 RBC 3.75 10^6/uL (3.5-6.1) 09/29/18 06:45 Hgb 10.1 g/dL (12.0-16.0) L 09/29/18 06:45 Hct 31.5 % (36.0-48.0) L 09/29/18 06:45 MCV 84.0 fl (80.0-105.0) 09/29/18 06:45 MCH 26.9 pg (25.0-35.0) 09/29/18 06:45 MCHC 32.1 g/dl (31.0-37.0) 09/29/18 06:45 RDW 14.3 % (11.5-14.5) 09/29/18 06:45 Plt Count 318 10^3/uL (120.0-450.0) 09/29/18 06:45 MPV 8.7 fl (7.0-11.0) 09/29/18 06:45 Neut % (Auto) 67.9 % (50.0-68.0) 09/29/18 06:45 Lymph % (Auto) 21.7 % (22.0-35.0) L 09/29/18 06:45 [place] % (Auto) 9.1 % (1.0-6.0) H 09/29/18 06:45 Eos % (Auto) 1.2 % (1.5-5.0) L 09/29/18 06:45 Baso % (Auto) 0.1 % (0.0-3.0) 09/29/18 06:45 Lymph # (Auto) 2.0 (1.2-3.4) 09/29/18 06:45 [place] # (Auto) 0.8 (0.1-0.6) H 09/29/18 06:45 Eos # (Auto) 0.1 (0.0-0.7) 09/29/18 06:45 Baso # (Auto) 0.01 K/mm3 (0.0-2.0) 09/29/18 06:45 Absolute Neuts (auto) 6.09 (1.4-6.5) 09/29/18 06:45 Sodium 140 mmol/L (132-148) 09/29/18 06:45 Potassium 4.3 mmol/L (3.6-5.0) 09/29/18 06:45 Chloride 110 mmol/L (98-107) H 09/29/18 06:45 Carbon Dioxide 22 mmol/L (21-33) 09/29/18 06:45 Anion Gap 13 (10-20) 09/29/18 06:45 BUN 29 mg/dL (7-21) H 09/29/18 06:45 Creatinine 1.2 mg/dl (0.7-1.2) 09/29/18 06:45 Est GFR ( Amer) 55 09/29/18 06:45 Est GFR (Non-Af Amer) 45 09/29/18 06:45 POC Glucose (mg/dL) 219 mg/dL (65-110) H 09/29/18 11:06 Random Glucose 168 mg/dL (70-110) H 09/29/18 06:45 Hemoglobin A1c 7.3 % (4.2-6.5) H 09/26/18 18:30 Calcium 8.5 mg/dL (8.4-10.5) 09/29/18 06:45 Total Bilirubin 0.2 mg/dL (0.2-1.3) 09/29/18 06:45 AST 31 U/L (14-36) 09/29/18 06:45 ALT 35 U/L (7-56) 09/29/18 06:45 Alkaline Phosphatase 83 U/L (38-126) 09/29/18 06:45 Troponin I < 0.01 ng/mL 09/27/18 21:44 Total Protein 7.1 g/dL (5.8-8.3) 09/29/18 06:45 Albumin 3.6 g/dL (3.0-4.8) 09/29/18 06:45 Globulin 3.6 gm/dL 09/29/18 06:45 Albumin/Globulin Ratio 1.0 (1.1-1.8) L 09/29/18 06:45 Triglycerides 284 mg/dL (35-160) H 09/27/18 07:00 Cholesterol 172 mg/dL (130-200) 09/27/18 07:00 LDL Cholesterol Direct 95 mg/dL (0-129) 09/27/18 07:00 HDL Cholesterol 28 mg/dL (29-60) L 09/27/18 07:00 Urine Color Yellow (YELLOW) 09/26/18 18:00 Urine Appearance Cloudy (CLEAR) 09/26/18 18:00 Urine pH 6.0 (4.7-8.0) 09/26/18 18:00 Ur Specific [place] 1.025 (1.005-1.035) 09/26/18 18:00 Urine Protein 100 mg/dL (<30 mg/dL) H 09/26/18 18:00 Urine Glucose (UA) Negative mg/dL (NEGATIVE) 09/26/18 18:00 Urine Ketones Negative mg/dL (NEGATIVE) 09/26/18 18:00 Urine Blood Large (NEGATIVE) H 09/26/18 18:00 Urine Nitrate Negative (NEGATIVE) 09/26/18 18:00 Urine Bilirubin Negative (NEGATIVE) 09/26/18 18:00 Urine Urobilinogen 0.2 E.U./dL (<1 E.U./dL) 09/26/18 18:00 Ur Leukocyte Esterase Large [place]/uL (NEGATIVE) H 09/26/18 18:00 Urine RBC Tntc /hpf (0-2) H 09/26/18 18:00 Urine WBC Tntc /hpf (0-6) H 09/26/18 18:00 Ur Epithelial Cells 6 - 8 /hpf (0-5) H 09/26/18 18:00 Urine Bacteria Many /hpf (NONE) 09/26/18 18:00 - Hospital Course Hospital Course: Nohelia Calvin, PGY-1, Internal Medicine Discharge Summary for Dr. Donnelly 63 year old female with past medical history of diabetes mellitus, hypertension, nephrolithiasis presented with left abdominal and flank pain and burning with urination. Patient also had multiple episodes of hematuria the day prior to a dmission. On day of admission, patient's pain had improved and hematuria had resolved. Patient also had cough for past 3 weeks which was nonproductive. Patient had recently arrived from [place] and was started on antibiotics for respiratory symptoms of which she could not remember. Urinanalysis showed large blood, large LE, negative nitrate, tntc WBC, 6-8 epithelial cells, and many bacteria. Urine culture showed E. Coli which was pansensitive. Abdominal CT showed no obstructive uropathy or evidence of recently passed calculus. Patient on admission was started on NS at 100cc/hr, started on ceftriaxone for treatment of UTI. Patient had rhonchi on exam but multiple chest X rays showed no acute effusions or infiltrates. Patient was started on doxycycline for possible bronchitis. As patient also had frontal sinus pain, patient was thought to have possible sinusitis as well. Antibiotics were subsuquently stopped. Instead, augmentin 1 tab Q12 was started on 09/28. Blood culture has been negative since admission. For rhonchi, patient was also given duonebs Q6 and Q2 PRN along with prednisone 40 mg daily, which improved her respiratory status. Patient had atypical chest pain on this admission. EKG showed normal sinus rhythm with troponinx3 was negative. Patient was found to have hyperlipidemia on this admission and started on lipitor 20 mg daily. Patient had REINA with creatinine of 1.5 on admission, which trended down to 1.2 by discharge. Patient was started on low sliding scale insulin for diabetes. Patient takes amaryl at home. Patient was not given antihypertensives for history of hypertension as blood pressure was stable during this visit. Patient was found to be stable and ready for discharge. Patient was told to take all home medications as prescribed. Patient was told to follow up with primary care doctor. Patient was told to return to the emergency room if she had any new or concerning symptoms. This is a brief summary of the events that transpired during this admission. For more information, please refer to hospital documentation. Discharge Diagnoses UTI Bronchitis Sinusitis Atypical Chest Pain Hyperlipidemia REINA Diabetes Mellitus type II - Date & Time of H&P Date of H&P: 09/26/18 Time of H&P: 22:22 Discharge Exam - Head Exam Head Exam: ATRAUMATIC, NORMAL INSPECTION, NORMOCEPHALIC - Eye Exam Eye Exam: EOMI, PERRL - Respiratory Exam Respiratory Exam: Clear to PA & Lateral, NORMAL BREATHING PATTERN. absent: Rales, Rhonchi, Wheezes - Cardiovascular Exam Cardiovascular Exam: REGULAR RHYTHM, RRR, +S1, +S2. absent: Clicks, Gallop, Rubs - GI/Abdominal Exam GI & Abdominal Exam: Normal Bowel Sounds, Soft. absent: Distended, Firm, Guarding, Tenderness - Neurological Exam Neurological exam: Alert, CN II-XII Intact, Normal Gait, Oriented x3 - Psychiatric Exam Psychiatric exam: Normal Affect, Normal Mood - Skin Skin Exam: Dry, Intact, Normal Color Discharge Plan - Discharge Medications Prescriptions: Albuterol 0.083% [Albuterol 0.083% Inhal [place] (2.5 mg/3 ml) UD] 2.5 mg IH Q6H PRN #1 neb PRN Reason: Shortness Of Breath Amoxicillin/Clavulanate [Augmentin 875 MG-125 MG Tab] 1 tab PO Q12 7 Days #14 tab Aspirin [Aspirin Chewable] 81 mg PO DAILY 30 Days #30 chew Atorvastatin [Lipitor] 20 mg PO DIN 30 Days #30 tab predniSONE [predniSONE Tab] 40 mg PO DAILY 3 Days #3 tab - Follow Up Plan Condition: STABLE Disposition: HOME/ ROUTINE Instructions: Kidney Infection Additional Instructions: Please follow up with primary care doctor within 3-5 days. Please take all medications as prescribed. Please take home medications as needed. Please return to the emergency department if you have any new or concerning symptoms. Referrals: Bethanie Marrufo MD [Medical Doctor] - <Lopez Donnelly - Last Filed: 09/30/18 15:05> Provider - Provider Date of Admission: 09/26/18 21:31 Attending physician: Lopez Donnelly MD Primary care physician: NO PRIMARY CARE PROVIDER Hospital Course - Lab Results Lab Results: Micro Results 09/27/18 06:00 Blood Blood Culture - Preliminary NO GROWTH AFTER 3 DAYS 09/27/18 06:00 Blood Blood Culture - Preliminary NO GROWTH AFTER 3 DAYS 09/26/18 18:00 Urine Random Urine Culture - Final Escherichia Coli Most Recent Lab Values WBC 9.0 10^3/uL (4.5-11.0) 09/29/18 06:45 RBC 3.75 10^6/uL (3.5-6.1) 09/29/18 06:45 Hgb 10.1 g/dL (12.0-16.0) L 09/29/18 06:45 Hct 31.5 % (36.0-48.0) L 09/29/18 06:45 MCV 84.0 fl (80.0-105.0) 09/29/18 06:45 MCH 26.9 pg (25.0-35.0) 09/29/18 06:45 MCHC 32.1 g/dl (31.0-37.0) 09/29/18 06:45 RDW 14.3 % (11.5-14.5) 09/29/18 06:45 Plt Count 318 10^3/uL (120.0-450.0) 09/29/18 06:45 MPV 8.7 fl (7.0-11.0) 09/29/18 06:45 Neut % (Auto) 67.9 % (50.0-68.0) 09/29/18 06:45 Lymph % (Auto) 21.7 % (22.0-35.0) L 09/29/18 06:45 [place] % (Auto) 9.1 % (1.0-6.0) H 09/29/18 06:45 Eos % (Auto) 1.2 % (1.5-5.0) L 09/29/18 06:45 Baso % (Auto) 0.1 % (0.0-3.0) 09/29/18 06:45 Lymph # (Auto) 2.0 (1.2-3.4) 09/29/18 06:45 [place] # (Auto) 0.8 (0.1-0.6) H 09/29/18 06:45 Eos # (Auto) 0.1 (0.0-0.7) 09/29/18 06:45 Baso # (Auto) 0.01 K/mm3 (0.0-2.0) 09/29/18 06:45 Absolute Neuts (auto) 6.09 (1.4-6.5) 09/29/18 06:45 Sodium 140 mmol/L (132-148) 09/29/18 06:45 Potassium 4.3 mmol/L (3.6-5.0) 09/29/18 06:45 Chloride 110 mmol/L (98-107) H 09/29/18 06:45 Carbon Dioxide 22 mmol/L (21-33) 09/29/18 06:45 Anion Gap 13 (10-20) 09/29/18 06:45 BUN 29 mg/dL (7-21) H 09/29/18 06:45 Creatinine 1.2 mg/dl (0.7-1.2) 09/29/18 06:45 Est GFR ( Amer) 55 09/29/18 06:45 Est GFR (Non-Af Amer) 45 09/29/18 06:45 POC Glucose (mg/dL) 219 mg/dL (65-110) H 09/29/18 11:06 Random Glucose 168 mg/dL (70-110) H 09/29/18 06:45 Hemoglobin A1c 7.3 % (4.2-6.5) H 09/26/18 18:30 Calcium 8.5 mg/dL (8.4-10.5) 09/29/18 06:45 Total Bilirubin 0.2 mg/dL (0.2-1.3) 09/29/18 06:45 AST 31 U/L (14-36) 09/29/18 06:45 ALT 35 U/L (7-56) 09/29/18 06:45 Alkaline Phosphatase 83 U/L (38-126) 09/29/18 06:45 Troponin I < 0.01 ng/mL 09/27/18 21:44 Total Protein 7.1 g/dL (5.8-8.3) 09/29/18 06:45 Albumin 3.6 g/dL (3.0-4.8) 09/29/18 06:45 Globulin 3.6 gm/dL 09/29/18 06:45 Albumin/Globulin Ratio 1.0 (1.1-1.8) L 09/29/18 06:45 Triglycerides 284 mg/dL (35-160) H 09/27/18 07:00 Cholesterol 172 mg/dL (130-200) 09/27/18 07:00 LDL Cholesterol Direct 95 mg/dL (0-129) 09/27/18 07:00 HDL Cholesterol 28 mg/dL (29-60) L 09/27/18 07:00 Urine Color Yellow (YELLOW) 09/26/18 18:00 Urine Appearance Cloudy (CLEAR) 09/26/18 18:00 Urine pH 6.0 (4.7-8.0) 09/26/18 18:00 Ur Specific [place] 1.025 (1.005-1.035) 09/26/18 18:00 Urine Protein 100 mg/dL (<30 mg/dL) H 09/26/18 18:00 Urine Glucose (UA) Negative mg/dL (NEGATIVE) 09/26/18 18:00 Urine Ketones Negative mg/dL (NEGATIVE) 09/26/18 18:00 Urine Blood Large (NEGATIVE) H 09/26/18 18:00 Urine Nitrate Negative (NEGATIVE) 09/26/18 18:00 Urine Bilirubin Negative (NEGATIVE) 09/26/18 18:00 Urine Urobilinogen 0.2 E.U./dL (<1 E.U./dL) 09/26/18 18:00 Ur Leukocyte Esterase Large [place]/uL (NEGATIVE) H 09/26/18 18:00 Urine RBC Tntc /hpf (0-2) H 09/26/18 18:00 Urine WBC Tntc /hpf (0-6) H 09/26/18 18:00 Ur Epithelial Cells 6 - 8 /hpf (0-5) H 09/26/18 18:00 Urine Bacteria Many /hpf (NONE) 09/26/18 18:00 Attending/Attestation - Attestation I have personally seen and examined this patient.: Yes I have fully participated in the care of the patient.: Yes I have reviewed all pertinent clinical information, including history, physical exam and plan: Yes Notes (Text): 09/30/18 14:58 Patient was seen and examined with emergency medicine medical director. 63 year old with past medical history of diabetes, hypertension and nephrolithiasis who presented with complaint of left flank pain, dysuria and burning epigastric pain. UA showed UTI CT abd/pelvis showed non obstructive right lower pole calculus. Patient was treated with IV fluid and IV Ceftriaxone. Urine cultures grew E coli. During her stay patient started c/o cough and is c/o congestion. On examination she was found to have tenderness over maxillary sinus suggestive of sinusitis. and wheezing on chest examination. Patient was started on oral Augmentin , prednisone and nebulization. Patient has responded well.She is afebrile, on room air and is ambulatory. Stage III CKD, Creatinin is 1.2 at base line and is ambulatory. She will be discharged home on oral Augmentin/short course of Prednisone and albuterol inhaler. Management plan was discussed in detail with patient and son who was at bed side. Education was provided
== END 2018-09-29 16:27 | disposition home or self-care (01) | DRG 690 ==
LOC: ED 17:00 → ERH 21:31 → 5RSO 22:59
PROVIDERS: ADMIT Hospitalist; ATTEND Internal Medicine
PROC: 3E0F7GC Introduction of Other Therapeutic Substance into Respiratory Tract, Via Natural or Artificial Opening (ICD-10-PCS; principal; 2018-09-28)
DX: N39.0 Urinary tract infection, site not specified (principal); N17.9 Acute kidney failure, unspecified; N18.3 Chronic kidney disease, stage 3 (moderate); I12.9 Hypertensive chronic kidney disease with stage 1 through stage 4 chronic kidney disease, or unspecified chronic kidney disease; E11.22 Type 2 diabetes mellitus with diabetic chronic kidney disease; B96.20 Unspecified Escherichia coli [E. coli] as the cause of diseases classified elsewhere; N20.0 Calculus of kidney; J40 Bronchitis, not specified as acute or chronic; R07.89 Other chest pain; E78.5 Hyperlipidemia, unspecified; J32.9 Chronic sinusitis, unspecified; K21.9 Gastro-esophageal reflux disease without esophagitis; D25.9 Leiomyoma of uterus, unspecified; K40.90 Unilateral inguinal hernia, without obstruction or gangrene, not specified as recurrent; Z79.84 Long term (current) use of oral hypoglycemic drugs